=== PATIENT | female | born 1940 | race Asian ===

== ENCOUNTER 2016-08-08 09:44 | Emergency (ER) | payer OTHER, MEDICAID ==
--- NOTE | 2016-08-08 09:57 | EDPHY ---
H & P Time Seen by Provider: 08/08/16 09:57 HPI/ROS: CHIEF COMPLAINT: Headache HISTORY OF PRESENT ILLNESS: The patient presents to the ED with complaints of an acute frontal headache that began earlier this morning. The patient denies any fall or trauma. The patient denies prior history of headaches. She reports her headache is moderate in nature. She denies any associated neurologic symptoms such as numbness or weakness. She has no complaints of fever , cough or congestion. The patient does not take any blood thinners. The patient denies additional acute complaints. REVIEW OF SYSTEMS: A comprehensive 10 point review of systems is otherwise negative aside from elements mentioned in the history of present illness. Source: Patient, Family - Medical/Surgical History Hx Asthma: No Hx Chronic Respiratory Disease: No Hx Diabetes: No Hx Cardiac Disease: No Hx Renal Disease: No Hx Cirrhosis: No Hx Alcoholism: No Hx HIV/AIDS: No Hx Splenectomy or Spleen Trauma: No Other PMH: "stomach problems", hyperlipidemia, HTN - Social History Smoking Status: Never smoked - Physical Exam Exam: General Appearance: Alert, no distress Eyes: Pupils equal and round no pallor or injection ENT, Mouth: Mucous membranes moist Respiratory: There are no retractions, lungs are clear to auscultation Cardiovascular: Regular rate and rhythm Gastrointestinal: Abdomen is soft and nontender, no masses, bowel sounds normal Neurological: A&O, normal motor function, normal sensory exam, normal cranial nerves Skin: Warm and dry, no rashes Musculoskeletal: Neck is supple nontender Extremities: symmetrical, full range of motion Constitutional: Initial Vital Signs Temperature (C) 36.8 C 08/08/16 09:56 Heart Rate 68 08/08/16 09:56 Respiratory Rate 15 08/08/16 09:56 Blood Pressure 152/68 H 08/08/16 09:56 O2 Sat (%) 100 08/08/16 09:56 O2 Delivery Mode Room Air Allergies/Adverse Reactions: No Known Allergies Allergy (Verified 08/13/12 16:19) Home Medications: Medication Instructions Recorded Esomeprazole Magnesium [Nexium 20 mg PO DAILY 01/23/14 24Hr] LISINOPRIL/HYDROCHLOROTHIAZIDE 1 each PO DAILY 01/23/14 [PRINZIDE 20-25 MG TABLET] Simvastatin [Zocor 10 mg] 10 mg PO DAILY18 01/23/14 Aspirin [Aspirin 81mg (*)] 81 mg PO DAILY #0 tab 09/04/14 Hyoscyamine Sulfate [Levsin, 0.125 mg PO Q6 PRN #14 tab 01/25/14 Hyomax-Sl 0.125 mg (*)] Ibuprofen 600 mg PO TID PRN #20 tablet 08/08/16 Ondansetron Odt [Zofran Odt] 4 mg PO Q4PRN PRN #20 tab 08/08/16 Medical Decision Making ED Course/Re-evaluation: History and physical obtained through the family who is able to translate for the patient. She presents to the ED with complaints of a frontal headache. The patient is noted to be neurologically intact upon arrival. Her vital signs are stable. The patient was taken for a noncontrast head CT scan for evaluation of her acute headache. The patient's head CT scan was reviewed by myself and discussed with Dr. Delano Saxena. It is negative for acute intracranial hemorrhage. The patient had an IV established. She received 15 mg of IV Toradol and 4 mg of IV Zofran. The patient was re-evaluated by myself multiple times. At 12:30 p.m. she reports her headache has resolved. She has no meningeal symptoms. She has a normal neurologic examination. At this point time I suspect her symptoms were secondary to a tension type headache. I do feel that she can be discharged home with a prescription for Zofran and and instructions to use ibuprofen as needed for headache. She has been given instructions to return to the ED for severe headache, vomiting, fever, neurologic symptoms or other concerns. Differential Diagnosis: Differential diagnosis considered includes intracranial hemorrhage, tension headache, migraine headache - Data Points Laboratory Results: Laboratory Results 08/08/16 10:00 08/08/16 10:00 08/08/16 08/08/16 10:00 10:00 WBC 5.52 10^3/uL 10^3/uL (3.80-9.50) RBC 4.16 10^6/uL L 10^6/uL (4.18-5.33) Hgb 12.9 g/dL g/dL (12.6-16.3) Hct 39.5 % % (38.0-47.0) MCV 95.0 fL fL (81.5-99.8) MCH 31.0 pg pg (27.9-34.1) MCHC 32.7 g/dL g/dL (32.4-36.7) RDW 13.9 % % (11.5-15.2) Plt Count 273 10^3/uL 10^3/uL (150-400) MPV 9.1 fL fL (8.7-11.7) Neut % (Auto) 50.1 % % (39.3-74.2) Lymph % (Auto) 37.1 % % (15.0-45.0) [place]oup % (Auto) 8.2 % % (4.5-13.0) Eos % (Auto) 4.0 % % (0.6-7.6) Baso % (Auto) 0.4 % % (0.3-1.7) Nucleat RBC Rel Count 0.0 % % (0.0-0.2) Absolute Neuts (auto) 2.77 10^3/uL 10^3/uL (1.70-6.50) Absolute Lymphs (auto) 2.05 10^3/uL 10^3/uL (1.00-3.00) Absolute Monos (auto) 0.45 10^3/uL 10^3/uL (0.30-0.80) Absolute Eos (auto) 0.22 10^3/uL 10^3/uL (0.03-0.40) Absolute Basos (auto) 0.02 10^3/uL 10^3/uL (0.02-0.10) Absolute Nucleated RBC 0.00 10^3/uL 10^3/uL (0-0.01) Immature Gran % 0.2 % % (0.0-1.1) Immature Gran # 0.01 10^3/uL 10^3/uL (0.00-0.10) Sodium 142 mEq/L mEq/L (134-144) Potassium 3.2 mEq/L L mEq/L (3.5-5.2) Chloride 103 mEq/L mEq/L (97-110) Carbon Dioxide 28 mEq/l mEq/l (22-31) Anion Gap 11 mEq/L mEq/L (8-16) BUN 17 mg/dL mg/dL (7-23) Creatinine 0.5 mg/dL L mg/dL (0.6-1.0) Estimated GFR > 60 Glucose 158 mg/dL H mg/dL (70-100) Calcium 8.9 mg/dL mg/dL (8.5-10.4) Medications Given: Discontinued Medications Sodium Chloride (Ns) 1,000 mls @ 0 mls/hr IV ONCE ONE PRN Reason: Wide Open Stop: 08/08/16 10:04 Last Admin: 08/08/16 10:37 Dose: 1,000 mls Ketorolac Tromethamine (Toradol) 15 mg IVP EDNOW ONE Stop: 08/08/16 10:31 Last Admin: 08/08/16 10:37 Dose: 15 mg Ondansetron HCl (Zofran) 4 mg IVP EDNOW ONE Stop: 08/08/16 10:28 Last Admin: 08/08/16 10:38 Dose: 4 mg Departure - Departure Disposition: Home, Routine, Self-Care Clinical Impression: Acute headache Condition: Good Instructions: Acute Headache (ED) Additional Instructions: 1. Ibuprofen as needed for pain. 2. Please take Zofran as directed for nausea. 3. Please return to the emergency department immediately for severe headache, vomiting, numbness, weakness or other concerns. 4. Please schedule a follow-up appointment with your primary care provider for a recheck this week.
[2016-08-08] MEDS ORDERED: NS 1,000 ML IV ONE (10:03)
[2016-08-08 10:22] LABS: % IMMATURE GRANULYOCYTES 0.2 % (0.0-1.1); ABSOLUTE IMMATURE GRANULOCYTES 0.01 10^3/uL (0.00-0.10); ADD DIFF? NO; ADD MORPH? NO; ADD SCAN? NO; ATYPICAL LYMPHOCYTE FLAG 60 (0-99); FRAGMENT RBC FLAG 0 (0-99); HEMATOCRIT 39.5 % (38.0-47.0); HEMOGLOBIN 12.9 g/dL (12.6-16.3); LEFT SHIFT FLG 0 (0-99); LIPEMIA HEMOLYSIS FLAG 80 (0-99); MEAN CELL HEMOGLOBIN CONCENTR. 32.7 g/dL (32.4-36.7); MEAN PLATELET VOLUME 9.1 fL (8.7-11.7); PLATELET CLUMPS FLAG 40 (0-99); PLATELET COUNT 273 10^3/uL (150-400); RED BLOOD CELL COUNT 4.16 10^6/uL (4.18-5.33); RED CELL DISTRIBUTION WIDTH 13.9 % (11.5-15.2)
[2016-08-08] MEDS ORDERED: ONDANSETRON 4 MG/2 ML VIAL ONE (10:25)
[2016-08-08] MEDS ORDERED: ONDANSETRON 4 MG/2 ML VIAL IVP ONE (10:27)
[2016-08-08] MEDS ORDERED: KETOROLAC 15 MG/1 ML SDV IVP ONE (10:30)
[2016-08-08 10:34] LABS: ANION GAP 11 mEq/L (8-16); CALCIUM 8.9 mg/dL (8.5-10.4); CARBON DIOXIDE 28 mEq/l (22-31); CHLORIDE 103 mEq/L (97-110); CREATININE 0.5 mg/dL (0.6-1.0); GLOMERULAR FILTRATION RATE > 60; GLUCOSE 158 mg/dL (70-100); POTASSIUM 3.2 mEq/L (3.5-5.2); SODIUM 142 mEq/L (134-144)
[2016-08-08 13:22] VITALS: BP 150/82; PULSE 81; RESP 17; TEMP 98.6; O2SAT 93
== END 2016-08-08 13:21 | disposition home or self-care (01) ==
LOC: EDUNIT#
DX: R51 Headache (principal); I10 Essential (primary) hypertension; Z79.82 Long term (current) use of aspirin
CPT/HCPCS: 70450; 96361; 96374; 96375; 99285; J1885; J2405